=== PATIENT | female | born 1935 | race Caucasian/White ===

== ENCOUNTER 2020-07-31 06:50 | Outpatient (CLI) | payer MEDICARE, SELFPAY ==
[2020-07-31 07:33] LABS: Basophils Absolute Auto 0.1 K/mm3 (0.0-0.1); Basophils Percent Auto 0.6 % (0.2-1.2); Eosinophils Absolute Auto 0.2 K/mm3 (0-0.3); Eosinophils Percent Auto 1.9 % (0-4.4); Hematocrit 39.1 % (37.0-47.0); Hemoglobin 13.1 g/dL (12.0-15.0); Immature Granulocyte Absolute 0.03 K/mm3 (0.00-0.031); Immature Granulocyte Percent A 0.3 % (0-0.5); Lymphocytes Absolute Auto 3.72 K/mm3 (0.9-3.2); Lymphocytes Percent Auto 36.2 % (18.3-44.2); Mean Corpuscular HGB Conc 33.5 g/dl (32-36); Mean Corpuscular Volume 89.7 fl (80-100); Mean Platelet Volume 9.4 fl (7.4-10.4); Monocytes Absolute Auto 0.9 K/mm3 (0.1-0.6); Neutrophils Absolute Auto 5.3 K/mm3 (1.3-6.7); Platelet Count Result 359 k/mm3 (150-375); Red Blood Count 4.36 M/mm3 (4.2-5.4); Red Cell Distribution Width 13.6 % (11.5-14.5); White Blood Count 10.3 K/mm3 (4.5-10.0)
[2020-07-31 07:41] LABS: Alanine Aminotransferase 12 U/L (4-35); Albumin Level 3.9 g/dL (3.5-5.1); Alkaline Phosphatase 68 U/L (38-126); Anion Gap 3 mmol/L (8-16); Aspartate Amino Transferase 21 U/L (14-36); Bilirubin,Total 0.4 mg/dL (0.2-1.3); Blood Urea Nitrogen 10 mg/dL (7-17); Calcium 9.5 mg/dL (8.4-10.2); Carbon Dioxide 31 mmol/L (22-30); Chloride 102 mmol/L (98-107); Cholesterol 211 mg/dL (0-200); Estimated Glomerular Filt Rate > 60; Glucose 103 mg/dL (65-105); HDL Direct 45 mg/dL; Magnesium 2.2 mg/dL (1.6-2.3); Sodium 136 mmol/L (137-145); Triglycerides 148 mg/dL (<150)
[2020-07-31 07:54] LABS: LDL Cholesterol Direct 128 mg/dL
[2020-07-31 08:48] LABS: Folic Acid > 20.0 ng/mL (2.76->20)
== END 2020-07-31 06:51 | disposition home or self-care (01) ==
PROVIDERS: PCP Internal Medicine; Visit Provider Internal Medicine
DX: E78.5 Hyperlipidemia, unspecified (principal); I10 Essential (primary) hypertension; R53.83 Other fatigue
CPT/HCPCS: 36415; 80053; 80061; 82607; 82746; 83735; 84443; 85025

== ENCOUNTER 2021-07-29 07:01 | Outpatient (CLI) | payer MEDICARE, SELFPAY ==
[2021-07-29 07:32] LABS: Basophils Absolute Auto 0.1 K/mm3 (0.0-0.1); Basophils Percent Auto 0.5 % (0.2-1.2); Eosinophils Absolute Auto 0.2 K/mm3 (0-0.3); Hematocrit 39.5 % (37.0-47.0); Hemoglobin 12.8 g/dL (12.0-15.0); Immature Granulocyte Absolute 0.02 K/mm3 (0.00-0.031); Immature Granulocyte Percent A 0.2 % (0-0.5); Lymphocytes Absolute Auto 2.87 K/mm3 (0.9-3.2); Mean Corpuscular HGB Conc 32.4 g/dl (32-36); Mean Corpuscular Hemoglobin 29.8 pg (26-34); Mean Corpuscular Volume 91.9 fl (80-100); Mean Platelet Volume 9.5 fl (7.4-10.4); Monocytes Absolute Auto 0.9 K/mm3 (0.1-0.6); Monocytes Percent Auto 9.7 % (2.6-8.5); Neutrophils Absolute Auto 5.2 K/mm3 (1.3-6.7); Neutrophils Percent Auto 56.6 % (45.5-73.1); Platelet Count Result 285 k/mm3 (150-375); Red Cell Distribution Width 14.4 % (11.5-14.5); White Blood Count 9.3 K/mm3 (4.5-10.0)
[2021-07-29 08:38] LABS: Alanine Aminotransferase 14 U/L (4-35); Albumin Level 4.2 g/dL (3.5-5.1); Alkaline Phosphatase 65 U/L (38-126); Anion Gap 7 mmol/L (8-16); Aspartate Amino Transferase 28 U/L (14-36); Bilirubin,Total 0.5 mg/dL (0.2-1.3); Blood Urea Nitrogen 9 mg/dL (7-17); Calcium 9.6 mg/dL (8.4-10.2); Carbon Dioxide 30 mmol/L (22-30); Chloride 101 mmol/L (98-107); Cholesterol 159 mg/dL (0-200); Estimated Glomerular Filt Rate > 60; Glucose 102 mg/dL (65-110); HDL Direct 49 mg/dL; Sodium 138 mmol/L (137-145); Triglycerides 102 mg/dL (<150)
[2021-07-29 08:49] LABS: LDL Cholesterol Direct 78 mg/dL
[2021-07-29 09:08] LABS: Thyroid Stimulating Hormone 0.653 uIU/mL (0.465-4.680)
[2021-07-29 09:45] LABS: Folic Acid > 20.0 ng/mL (2.76->20)
== END 2021-07-29 07:02 | disposition home or self-care (01) ==
PROVIDERS: PCP Internal Medicine; Visit Provider Internal Medicine
DX: R53.83 Other fatigue (principal); R73.9 Hyperglycemia, unspecified; E78.5 Hyperlipidemia, unspecified
CPT/HCPCS: 36415; 80053; 80061; 82607; 82746; 84443; 85025

== ENCOUNTER 2021-11-12 12:23 | Outpatient (CLI) | payer MEDICARE, SELFPAY ==
--- NOTE | ~2021-11-12 | US_ITS ---
EXAMINATION: US carotid duplex BI DATE: 11/12/2021 13:19 INDICATION: Syncope and collapse TECHNIQUE: Grayscale, color Doppler, and pulsed Doppler images of the cervical carotid arteries were obtained. The degree of vessel stenosis is placed in one of the following categories: normal, <50%, 5 0-69%, >=70% but less than near-occlusion, near-occlusion, or total occlusion. Note that percent sten osis relative to normal distal artery lumen diameter is indirectly measured from velocity measurement s as described by Terrance, et al. Radiology 2003; 229:340-346. Notes: Normal: Peak systolic velocity <125 centimeters/sec and no plaque <50%. Peak systolic velocity <125 ( EDV <40; ICA/CCA PSV ratio <2.0; used these factors only a tandem lesions or low cardiac output or co ntralateral disease) 50-69 %: PSV 125-230 (EDV 40-100; ratio 2-4) >= 70% but less than near occlusion: PSV greater than 230 (EDV > 100; ratio> 4.0) Near Occlusion: PSV that is variable; markedly narrowed lumen Occlusion: Absent flow on color/spectral Doppler and no lumen on jorge scale. COMPARISON: None. FINDINGS: RIGHT: The right common carotid artery (CCA) peak systolic velocity (PSV) is 82 cm/s. The right internal car otid artery (ICA) PSV is 140 cm/s. The right ICA end-diastolic velocity (EDV) is 23 cm/s. The right I CA/CCA PSV ratio is 1.7. The external carotid artery (ECA) PSV is 138 cm/s. There is antegrade flow i n the right vertebral artery. LEFT: The left CCA PSV is 113 cm/s. The left ICA PSV is 76 cm/s. The left ICA EDV is 17 cm/s. The left ICA/ CCA PSV ratio is 0.7. The ECA PSV is 182 cm/s. There is antegrade flow in the left vertebral artery. IMPRESSION: 1. 50-69% stenosis in the right internal carotid artery by sonographic criteria. 2. Less than 50% stenosis in the left internal carotid artery by sonographic criteria. Reviewed, dictated and finalized at location B. [employer] IMPRESSION: 1. 50-69% stenosis in the right internal carotid artery by sonographic criteria . 2. Less than 50% stenosis in the left internal carotid artery by sonographic cr iteria.
== END 2021-11-12 12:24 | disposition home or self-care (01) ==
LOC: ANHIMG 12:29
PROVIDERS: PCP Internal Medicine; Visit Provider Physician Assistant
DX: I65.23 Occlusion and stenosis of bilateral carotid arteries (principal)
CPT/HCPCS: 93880

== ENCOUNTER 2022-07-20 08:22 | Outpatient (CLI) | payer MEDICARE, SELFPAY ==
[2022-07-20 08:38] LABS: Basophils Percent Auto 0.4 % (0.2-1.2); Eosinophils Absolute Auto 0.4 K/mm3 (0-0.3); Eosinophils Percent Auto 3.5 % (0-4.4); Hematocrit 41.5 % (37.0-47.0); Hemoglobin 13.3 g/dL (12.0-15.0); Immature Granulocyte Absolute 0.02 K/mm3 (0.00-0.031); Immature Granulocyte Percent A 0.2 % (0-0.5); Lymphocytes Absolute Auto 2.93 K/mm3 (0.9-3.2); Lymphocytes Percent Auto 28.7 % (18.3-44.2); Mean Corpuscular Volume 93.7 fl (80-100); Mean Platelet Volume 9.4 fl (7.4-10.4); Monocytes Absolute Auto 0.9 K/mm3 (0.1-0.6); Monocytes Percent Auto 8.8 % (2.6-8.5); Neutrophils Percent Auto 58.4 % (45.5-73.1); Platelet Count Result 283 k/mm3 (150-375); Red Blood Count 4.43 M/mm3 (4.2-5.4); Red Cell Distribution Width 13.4 % (11.5-14.5); White Blood Count 10.2 K/mm3 (4.5-10.0)
[2022-07-20 08:50] LABS: Alanine Aminotransferase 12 U/L (6-35); Albumin Level 4.1 g/dL (3.5-5.1); Alkaline Phosphatase 87 U/L (38-126); Anion Gap 9 mmol/L (8-16); Aspartate Amino Transferase 18 U/L (14-36); Bilirubin,Total 0.5 mg/dL (0.2-1.3); Blood Urea Nitrogen 7 mg/dL (7-17); Calcium 8.9 mg/dL (8.4-10.2); Carbon Dioxide 25 mmol/L (22-30); Chloride 103 mmol/L (98-107); Cholesterol 179 mg/dL (0-200); Estimated Glomerular Filt Rate > 60; Glucose 105 mg/dL (65-110); HDL Direct 49 mg/dL; Magnesium 2.1 mg/dL (1.6-2.3); Sodium 137 mmol/L (137-145); Triglycerides 154 mg/dL (<150)
[2022-07-20 09:01] LABS: LDL Cholesterol Direct 93 mg/dL
[2022-07-20 09:56] LABS: Folic Acid 7.7 ng/mL (2.76->20)
== END 2022-07-20 08:23 | disposition home or self-care (01) ==
LOC: ANHLAB 08:25
PROVIDERS: PCP Internal Medicine; Visit Provider Internal Medicine
DX: I48.0 Paroxysmal atrial fibrillation (principal); R53.83 Other fatigue; I25.10 Atherosclerotic heart disease of native coronary artery without angina pectoris; R73.9 Hyperglycemia, unspecified
CPT/HCPCS: 36415; 80053; 80061; 82607; 82746; 83735; 84443; 85025

== ENCOUNTER 2023-07-28 10:42 | Outpatient (CLI) | payer MEDICARE, SELFPAY ==
[2023-07-28 11:51] LABS: Basophils Percent Auto 0.4 % (0.2-1.2); Eosinophils Absolute Auto 0.2 K/mm3 (0-0.3); Eosinophils Percent Auto 2.1 % (0-4.4); Hematocrit 41.3 % (37.0-47.0); Hemoglobin 13.4 g/dL (12.0-15.0); Immature Granulocyte Absolute 0.03 K/mm3 (0.00-0.031); Immature Granulocyte Percent A 0.3 % (0-0.5); Lymphocytes Absolute Auto 2.84 K/mm3 (0.9-3.2); Lymphocytes Percent Auto 30.5 % (18.3-44.2); Mean Corpuscular HGB Conc 32.4 g/dl (32-36); Mean Corpuscular Hemoglobin 30.2 pg (26-34); Mean Corpuscular Volume 93.2 fl (80-100); Monocytes Absolute Auto 0.8 K/mm3 (0.1-0.6); Monocytes Percent Auto 8.3 % (2.6-8.5); Neutrophils Absolute Auto 5.4 K/mm3 (1.3-6.7); Neutrophils Percent Auto 58.4 % (45.5-73.1); Platelet Count Result 275 k/mm3 (150-375); Red Blood Count 4.43 M/mm3 (4.2-5.4); Red Cell Distribution Width 14.4 % (11.5-14.5); White Blood Count 9.3 K/mm3 (4.5-10.0)
[2023-07-28 12:04] LABS: Alanine Aminotransferase 17 U/L (6-35); Albumin Level 3.9 g/dL (3.5-5.1); Alkaline Phosphatase 62 U/L (38-126); Anion Gap 3 mmol/L (8-16); Aspartate Amino Transferase 24 U/L (14-36); Bilirubin,Total 0.5 mg/dL (0.2-1.3); Blood Urea Nitrogen 10 mg/dL (7-17); Calcium 8.9 mg/dL (8.4-10.2); Carbon Dioxide 31 mmol/L (22-30); Chloride 102 mmol/L (98-107); Cholesterol 170 mg/dL (0-200); Estimated Glomerular Filt Rate > 60; Glucose 96 mg/dL (65-110); HDL Direct 55 mg/dL; Sodium 136 mmol/L (137-145); Triglycerides 117 mg/dL (<150)
[2023-07-28 12:16] LABS: LDL Cholesterol Direct 81 mg/dL
[2023-07-28 12:36] LABS: Thyroid Stimulating Hormone 0.444 uIU/mL (0.465-4.680)
== END 2023-07-28 10:43 | disposition home or self-care (01) ==
PROVIDERS: PCP Internal Medicine; Visit Provider Internal Medicine
DX: E78.5 Hyperlipidemia, unspecified (principal); R53.83 Other fatigue; R73.9 Hyperglycemia, unspecified; I25.10 Atherosclerotic heart disease of native coronary artery without angina pectoris; I48.0 Paroxysmal atrial fibrillation
CPT/HCPCS: 36415; 80053; 80061; 83735; 84443; 85025

== ENCOUNTER 2023-08-27 10:42 | Outpatient (CLI) | payer MEDICARE, SELFPAY | END 2023-08-27 10:43 | disposition home or self-care (01) | PROVIDERS: PCP Internal Medicine; Visit Provider Physician Assistant | DX: R41.0 Disorientation, unspecified (principal); R29.6 Repeated falls | CPT/HCPCS: 87086; 87088 ==

== ENCOUNTER 2024-08-03 10:21 | Outpatient (CLI) | payer MEDICARE, SELFPAY ==
[2024-08-03 11:04] LABS: Basophils Percent Auto 0.5 % (0.2-1.2); Eosinophils Absolute Auto 0.2 K/mm3 (0-0.3); Eosinophils Percent Auto 2.7 % (0-4.4); Hematocrit 42.8 % (37.0-47.0); Hemoglobin 13.6 g/dL (12.0-15.0); Immature Granulocyte Absolute 0.02 K/mm3 (0.00-0.031); Immature Granulocyte Percent A 0.2 % (0-0.5); Lymphocytes Absolute Auto 2.58 K/mm3 (0.9-3.2); Lymphocytes Percent Auto 29.9 % (18.3-44.2); Mean Corpuscular HGB Conc 31.8 g/dl (32-36); Mean Corpuscular Hemoglobin 30.1 pg (26-34); Mean Corpuscular Volume 94.7 fl (80-100); Mean Platelet Volume 10.2 fl (7.4-10.4); Monocytes Absolute Auto 0.7 K/mm3 (0.1-0.6); Monocytes Percent Auto 7.6 % (2.6-8.5); Neutrophils Absolute Auto 5.1 K/mm3 (1.3-6.7); Neutrophils Percent Auto 59.1 % (45.5-73.1); Platelet Count Result 281 k/mm3 (150-375); Red Blood Count 4.52 M/mm3 (4.2-5.4); Red Cell Distribution Width 13.9 % (11.5-14.5); White Blood Count 8.6 K/mm3 (4.5-10.0)
[2024-08-03 11:16] LABS: Alanine Aminotransferase 12 U/L (6-35); Albumin Level 3.9 g/dL (3.5-5.1); Alkaline Phosphatase 56 U/L (38-126); Anion Gap 5 mmol/L (4-12); Aspartate Amino Transferase 23 U/L (14-36); Bilirubin,Total 0.5 mg/dL (0.2-1.3); Blood Urea Nitrogen 15 mg/dL (7-17); Calcium 9.2 mg/dL (8.4-10.2); Carbon Dioxide 28 mmol/L (22-30); Chloride 105 mmol/L (98-107); Cholesterol 169 mg/dL (0-200); Estimated Glomerular Filt Rate > 60; Glucose 96 mg/dL (65-110); HDL Direct 48 mg/dL; Potassium 3.9 mmol/L (3.4-5.0); Sodium 138 mmol/L (137-145); Triglycerides 117 mg/dL (<150)
[2024-08-03 11:27] LABS: LDL Cholesterol Direct 78 mg/dL
[2024-08-03 11:49] LABS: Thyroid Stimulating Hormone 0.375 uIU/mL (0.465-4.680)
[2024-08-03 12:26] LABS: Folic Acid > 20.0 ng/mL (2.76->20)
== END 2024-08-03 10:22 | disposition home or self-care (01) ==
PROVIDERS: PCP Internal Medicine; Visit Provider Physician Assistant
DX: R53.83 Other fatigue (principal); I25.10 Atherosclerotic heart disease of native coronary artery without angina pectoris
CPT/HCPCS: 36415; 80053; 80061; 82607; 82746; 84443; 85025

== ENCOUNTER 2024-10-05 15:28 | Outpatient (CLI) | payer MEDICARE, SELFPAY ==
[2024-10-05 15:56] LABS: Anion Gap 2 mmol/L (4-12); Blood Urea Nitrogen 15 mg/dL (7-17); Calcium 9.6 mg/dL (8.4-10.2); Carbon Dioxide 28 mmol/L (22-30); Chloride 107 mmol/L (98-107); Estimated Glomerular Filt Rate > 60; Glucose 95 mg/dL (65-110); Potassium 4.1 mmol/L (3.4-5.0); Sodium 137 mmol/L (137-145)
== END 2024-10-05 15:29 | disposition home or self-care (01) ==
LOC: ANHLAB 15:29
PROVIDERS: PCP Nurse Practitioner; Visit Provider Nurse Practitioner
DX: I10 Essential (primary) hypertension (principal)
CPT/HCPCS: 36415; 80048

== ENCOUNTER 2025-04-16 11:10 | Outpatient (CLI) | payer MEDICARE, SELFPAY ==
--- OUTSIDE RECORDS SUMMARY | 2025-04-16 11:42 | XMS_ITS | Clinical Summary ---
Author Organization [facility] Address [address] [place] [address] Care Team Providers Care Asic Engineer Name Role Phone Unavailable Primary Care Provider Unavailabl e Source Comments [facility],non-owned Affiliates and Associated Physician Practices is amultiple site organization consisting of ambulatory clinics and [place]in [place] and [place]. This disclosure is being madepursuant to the Care Everywhere program and may not contain all information available regarding this patient. Last updated 18.[facility] Hyperoptic Allergies No known active allergies Immunizations Immunization Administration Dates Next Due INFLUENZA VACCINE, HIGH-DOSE , QUADR. 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 Gender Identity Not on file Sexual Orientation Not on file Plan of Treatment Health Maintenance Due Date Last Done Comments BONE DENSITY TESTING 1937 DTAP/TDAP/TD VACCINES (1 - Tdap) 1956 PNEUMOCOCCAL VACCINE 50+ (1 of 1 - PCV) 1987 ZOSTER VACCINE (1 of 2) 1987 Respiratory Syncytial Virus (RSV) Vaccine Pt: or over 60 yrs (1 - 1-dose 75+ series) 2012 COVID-19 VACCINE ( - 2023-2 5 season) 2024 DEPRESSION SCREENING 10/18/2024 INFLUENZA VACCINE (Season Ended) 2025 09/24/20 17 HEPATITIS B VACCINE Aged Out No longe r eligible based on patient's age to complete this topic HIB VACCINE Aged Out No longer eligi ble based on patient's age to complete this topic HPV VACCINE Aged Out No longer eligi ble based on patient's age to complete this topic MENINGOCOCCAL (Group B) VACC INE SHARED DECISION-MAKING Aged Out No longer eligibl e based on patient's age to complete this topic MENINGOCOCCAL GROUPS A/C/Y/W VACCINE Aged Out No longer eligible b ased on patient's age to complete this topic Insurance MEDICARE [facility] Address: [address] [place] [address] MEDICARE
--- OUTSIDE RECORDS SUMMARY | 2025-04-16 11:43 | XMS_ITS | Clinical Summary ---
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 Phone Jeramy Orourke MD Unavailable [phone] Jefferson Kong NP Primary Care Provider [phone] Allergies No known active allergies Medications aspirin (ASPIRIN LOW DOSE) 81 mg tablet take 1 Tablet (81MG) by oral route every day 0 3 Active multivitamin tablet tablet take 1 tablet by oral route every day with food 0 3 Active calcium (CALCIO ALVIN) 500 mg tablet take 1 by oral route every day 0 3 Active lisinopriL (PRINIVIL,ZESTRIL ) 40 mg tabletIndications :Essential hypertension Take 1 tablet (40 mg total) by mouth daily 1 Active carvediloL (COREG) 6.25 mg tabletIndications :New onset atrial fibrillation (HCC) Take 1 tablet (6.25 mg total) by mouth 2 (two) times a day with meals 60 tablet 1 01/12/20 26 Active atorvastatin (LIPITOR) 20 mg tablet Take 1 tablet (20 mg total) by mouth daily Active cholecalciferol (VITAMIN D-3) 25 mcg (1,000 unit) tablet Take 1 tablet (1,000 Units total) by mouth daily Active DULCOLAX, BISACODYL, ORAL Take by mouth Active polyethylene glycol (MIRALAX) 17 gram packetIndications :constipation Take 1 packet (17 g total) by mouth daily Active nitroglycerin (NITROSTAT) 0.4 mg SL tablet DISSOLVE ONE TABLET UNDER THE TONGUE EVERY 5 MINUTES NEEDED FOR CHEST PAIN. DO NOT EXCEED A TOTAL OF 3 DOSES IN 15 MINUTES 25 tablet 4 Active isosorbide mononitrate ER (IMDUR) 30 mg 24 hr tabletIndications :Coronary artery disease of [place] heart with stable angina pectoris, unspecified vessel or lesion type Take 1 tablet by mouth once daily 90 tablet 2 4 Active amLODIPine (NORVASC) 10 mg tablet Take 1 tablet (10 mg total) by mouth daily 5 Active Active Problems Problem Noted Date Diagnosed Date Syncope, unspecified syncope type 01/28/2025 Cardiac pacemaker in situ 02/12/2021 Overview (02/12/2021): Biotronik Dual Pacemaker-Edora. Dx; SSS, Bradycardia Arrest, Syncope, PAF. DOI 02/04/2021-Dr Carrero. Biotronik remote monitoring. Paroxysmal A-fib 02/03/2021 Overview (02/03/2021): Added automatically from request for surgery [id number] CAD (coronary artery disease) 02/03/2021 Overview (02/03/2021): Added automatically from request for surgery [id number] Paroxysmal atrial fibrillation 10/16/2019 Coronary artery disease invo lving [place] coronary artery of [place] heart without angina pectoris 02/17/2018 Orthostatic hypotension 02/17/2018 History of coronary artery stent placement 02/17 Bradycardia Essential hypertension Anemia, mild Resolved Problems Problem Noted Date Diagnosed Date Resolved Date Chronic anticoagulation 10/16/201910/18 Encounters Date Type Department Care Team Description 01/30/2025 8:30 AM CDT Ancillary Procedure [facility] Cardiology [facility] [address] [place] [id number] Paroxysmal A-fib (HCC) [I48.0] (Primary Dx); Cardiac pacemaker in situ; Bradycardia; SSS (sick sinus syndrome) (HCC) 01/28/2025 11:23 AM CDT - 01/28/2025 4:14 PM CDT Emergency [facility] Emergency Department [address] [place] [address] Alejandra Rodriguez MD PhD Mateus Lebron MD Syncope, unspecified syncope type (Primary Dx); Bradycardia Discharge Disposition: Discharge to home or self care from Last 3 Months Medical History Medical History Date Comments Hypertension Family History Medical History Relation Name Comments Heart failure Mother 2 Congestive Hea rt Failure; Relation Name Status Comments Mother 1 Alive Mother 2 Social History Tobacco Use Types Packs/Day Years Used Date Smoking Tobacco: Former Smokeless Tobacco: Never Tobacco Cessation:Counseling Given: Not Answered Alcohol Use Standard Drinks/Week Comments Yes 0 (1 standard drink = 0.6 oz pur e alcohol) Personal Safety Answer Date Recorded Have you ever been in or are you currently in a harmful physical or emotional relationship or is someone making you feel afraid or unsafe? 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 Gender Identity Not on file Sexual Orientation Not on file Obstetrics History Last Filed Vital Signs Vital Sign Reading Time Taken Comments Blood Pressure 160/63 01/28/2025 3:05 PM CDT Pulse 77 01/28/2025 3:05 PM CDT Temperature 36.4 C (97.6 F) 01/28/2025 11:34 AM CDT Respiratory Rate 18 01/28/2025 3:05 PM CDT Oxygen Saturation 96% 01/28/2025 3:05 PM CDT Inhaled Oxygen Concentration - - Weight 52.2 kg (115 lb) 01/28/2025 11:49 AM CDT Height 160 cm (5' 3) 01/28/2025 11:49 AM CDT Body Mass Index 20.37 01/28/2025 11:49 AM CDT Plan of Treatment Health Maintenance Due Date Last Done Comments Depression Screening 1935 Osteoporosis Screening-Bone Density Scan 1935 DTaP/Tdap/Td Vaccine (1 - Tdap) 1948 Hepatitis B Screening 1955 Zoster Vaccine (1 of 2) 1987 Well Visit 65+ 2002 Pneumococcal vaccine 65+ (2 of 2 - PCV) 08/21/2020 08/21/2019 Fall Risk Assessment 02/05/2022 02/05/2021, 02/18/20 Influenza Vaccine (Season Ended) 2025 08/21/2019, 08/05/2018, 09/24/2017 Medical Devices Implanted Type Area Welder 2Nd Shift Device Identifier Shelf Expiration Date Model / Serial / Lot Bi[employer]ik Inc [id number] Solia S 53cm Steroid Elute Bipolar Active Fixation Endocardial - [id number] - [id number] Implanted:Qty: 1 on 02/04/2021 by Harrison Carrero MD at [facility] N/A: Heart [employer] 11/17/2022 [id number] / [id number] / Description:Right Ventricle Lead [employer] [id number] Solia S 45cm Bipolar Active Fixation Lead Pacing Steroid Eluting - [id number] - [id number] Implanted:Qty: 1 on 02/04/2021 by Harrison Carrero MD at [facility] N/A: Heart [employer] 12/15/2022 [id number] / [id number] / Description:Atrial Lead [employer] [id number] Edora Promri [id number] Dual Chamber Rate Adaptive Unipolar Bipolar - [id number] - [id number] Implanted:Qty: 1 on 02/04/2021 by Harrison Carrero MD at [facility] Left: Chest [employer] 05/17/2022 [id number] / [id number] / Procedures Procedure Name Priority Date/Time Associated Diagnosis Comments DEVICE CHECK - REMOTE Routine 01/30/2025 9:17 AM CDT Cardiac pacemaker in situ Bradycardia SSS (sick sinus syndrome) (HCC) URINALYSIS AND REFLEX TO MICROSCOPIC AND CULTURE STAT 01/28/2025 1:24 PM CDT TROPONIN I HIGH-SENSITIVITY 2-HOUR Timed 01/28/2025 1:18 PM CDT POCT GLUCOSE DEVICE Routine 01/28/2025 1 2:36 PM CDT ECG 12-LEAD Routine 01/28/2025 12:26 PM CDT XR CHEST PA LATERAL 2 VIEWS ED 01/28/2025 12:10 PM CDT EGFR STAT 01/28/2025 11:43 AM CDT DIFFERENTIAL AUTO STAT 01/28/2025 11: 43 AM CDT PHOSPHORUS Routine 01/28/2025 11:43 AM CDT MAGNESIUM Routine 01/28/2025 11:43 AM CDT THYROID FUNCTION CASCADE Routine 01/28/2025 11:43 AM CDT PRO B-TYPE NATRIURETIC PEPTIDE STAT 01/28/2025 11:43 AM CDT TROPONIN I HIGH-SENSITIVITY SERIES (BASELINE, 2HR, 4HR, 6HR) STAT 01/28/2025 11:43 AM CDT COMPREHENSIVE METABOLIC PANEL STAT 01/28/2025 11:43 AM CDT CBC WITH AUTO DIFFERENTIAL STAT 01/28/2025 11:43 AM CDT RESPIRATORY PATHOGEN PANEL STAT 01/28/2025 11:43 AM CDT from Last 3 Months Results * DEVICE CHECK - REMOTE (01/30/2025 9:17 AM CDT) Anatomical Region Laterality Modality Other Narrative 02/08/2025 7:21 AM CDT Biotronik Dual Pacemaker-Edora. Dx; SSS, Bradycardia Arrest, Syncope, PAF. DOI 02/04/2021-Dr Carrero. Biotronik remote monitoring. Routine DDD Pacemaker remote. Normal device function. Battery function-65%, remaining battery life to YURY. Appropriate lead measurements noted. Presenting rhythm: -VS. Ap-58%, SOCIAL SERVICES COUNSELOR-0%. No Atrial high rate episodes noted. 1 Ventricular high rate episode noted on 11/26/2024, iegm NSVT 21 beat duration @ 185 bpm. See device check attachment. Medications; Coreg, Imdur, Lipitor, ASA. See scanned report. Office pacemaker f/u 06/06/2025. Biotronik remote f/u du in 6 months. Yumiko Roche, RN us Jeramy Orourke MD CV CARDIAC SERVICES PROC EDURES Final Result * (ABNORMAL) Urinalysis reflex to microscopic and culture Urine, clean voided (01/28/2025 1:24 PM CDT) Color, ur Straw Yellow Clarity, ur Cloudy(A) Clear [facility] Specific gravity, ur 1.009 1.003 - 1.030 [facility] pH, urine 7.5 [facility] Comment: Interpretive Data U rine pH is affected by diet, medications, systemic acid-base disturbances, and renal tubular function. pH may affect urinary stone formation. For example, urine pH below 6.0 may help reduce the tendency for calcium phosphate stones and pH greater than 6.0 may reduce the tendency for uric acid stone formation. Source: [facility] friendfund Current Interpretive Data was last revised on 2017 Protein, ur ql Trace Negative [facility] Glucose, ur ql Negative Negative [facility] Ketones, ur Negative Negative [facility] Bilirubin, ur Negative Negative [facility] Blood, ur Negative Negative [facility] Urobilinogen, ur <2.0 <2.0 mg/dL [facility] Nitrite, ur Negative Negative [facility] Leukocyte esterase, ur Negative Negative [facility] UA reflex comment Reflex conditions for microscopic UA and culture not met. [facility] Urine, clean voided 01/28/2025 1:24 PM CDT 01/28/2025 1:30 PM CDT us Hoa Vizcaino MD LAB MICROBIOLOGY - GENE RAL ORDERABLES Final Result [facility] One [facility] Department [place] [address] * Troponin I high-sensitivity 2-hour (01/28/2025 1:18 PM CDT) Trop I hs 5 <=17 ng/L Comment: Interpretive Data For further hscTnI resources including the diagnostic algorithm and an aid in interpretation, copy and paste this link: https://bjhlab.testcatalog.org/show/hsTrop-[email or web address] Current Interpretive Data last revised 2020. Trop I hs delta 0 ng/L [facility] Trop I hs interp Insignificant [facility] Blood 01/28/2025 1:18 PM CDT 01/28/2025 1:40 PM CDT us Hoa Vizcaino MD LAB BLOOD ORDERABLES Fi nal Result Performing Organization Address City/[facility]/ZIP Co de Phone Number [facility] Department [place] [address] * POCT glucose (01/28/2025 12:36 PM CDT) [facility] Glucose, POC 103 70 - 199 mg/dL Blood 01/28/2025 12:3 6 PM CDT 01/28/2025 12:36 PM CDT us Alejandra Rodriguez MD PhD LAB POCT ORDERABLES - D EVICE Final Result Performing Organization Address City/[facility] Co de Phone Number [facility] Department [place] [address] * ECG 12-LEAD (01/28/2025 12:26 PM CDT) Narrative [facility] - 01/28/2025 12:26 PM CDT Alejandra Rodriguez MD PhD 01/28/2025 12:27 PM ECG 12 lead Date/Time: 01/28/2025 12:26 PM Performed by: Alejandra Rodriguez MD PhD Authorized by: Hoa Vizcaino MD Rate: ECG rate: 72 ECG rate assessment: normal Rhythm: Rhythm: paced Pacing: Capture: Complete Type of pacing: Atrial Ectopy: Ectopy: none QRS: QRS axis: Normal QRS intervals: Normal Conduction: Conduction: normal ST segments: ST segments: Normal T waves: T waves: non-specific Previous ECG: Previous ECG: Compared to current Date of previous EC11/05/2023 Interpretation: Interpretation: No significant change Recommended Follow-up: Recommended follow up: further workup in the ED Procedure Note Alejandra Rodriguez MD PhD - 01/28/2025 12:26 PM CDT Procedure ECG 12 lead Date/Time: 01/28/2025 12:26 PM Performed by: Alejandra Rodriguez MD PhD Authorized by: Hoa Vizcaino MD Rate: ECG rate: 72 ECG rate assessment: normal Rhythm: Rhythm: paced Pacing: Capture: Complete Type of pacing: Atrial Ectopy: Ectopy: none QRS: QRS axis: Normal QRS intervals: Normal Conduction: Conduction: normal ST segments: ST segments: Normal T waves: T waves: non-specific Previous ECG: Previous ECG: Compared to current Date of previous EC11/05/2023 Interpretation: Interpretation: No significant change Recommended Follow-up: Recommended follow up: further workup in the ED Alejandra Rodriguez MD PhD 01/28/25 [id number] us Hoa Vizcaino MD ECG ORDERABLES Final R esult [facility] * XR Chest PA Lateral 2 Views (01/28/2025 12:10 PM CDT) Anatomical Region Laterality Modality Body, Chest N/A Computed Radiogr aphy 01/28/2025 12:1 6 PM CDT Impressions 01/28/2025 2:16 PM CDT The current study is compared with the prior radiograph dated 02/04/2021. Left subclavian pacemaker with leads overlying the right atrium and right ventricle. The lungs are mildly hyperinflated. No consolidation, pleural effusion, or pneumothorax. Normal cardiomediastinal silhouette. Dictated by: Jose Clemens MD The radiology attending physician has personally reviewed this study, and had reviewed and/or edited this written report and agrees with it. Electronically signed by: Atif Hernández M.D. Narrative 01/28/2025 2:16 PM CDT EXAMINATION: 2 view chest radiograph Procedure Note Atif Hernández MD - 01/28/2025 EXAMINATION: 2 view chest radiograph IMPRESSION: The current study is compared with the prior radiograph dated 02/04/2021. Left subclavian pacemaker with leads overlying the right atrium and right ventricle. The lungs are mildly hyperinflated. No consolidation, pleural effusion, or pneumothorax. Normal cardiomediastinal silhouette. Dictated by: Jose Clemens MD The radiology attending physician has personally reviewed this study, and had reviewed and/or edited this written report and agrees with it. Electronically signed by: Atif Hernández M.D. Hoa Vizcaino MD IMG XR PROCEDURES Final Result * Troponin I high-sensitivity series (baseline, 2hr, 4hr, 6hr) (01/28/2025 11:43 AM CDT) Pathologist [facility] Trop I hs 5 <=17 ng/L Comment: Interpretive Data For further hscTnI resources including the diagnostic algorithm and an aid in interpretation, copy and paste this link: https://bjhlab.testcatalog.org/show/hsTrop-[email or web address] Current Interpretive Data last revised 2020. Blood 01/28/2025 11:4 3 AM CDT 01/28/2025 12:06 PM CDT Hoa Vizcaino MD LAB BLOOD ORDERABLES Fi nal Result [facility] One [facility] Department [place] [address] * eGFR (01/28/2025 11:43 AM CDT) Pathologist [facility] eGFR 84 >=60 mL/min/1. 73 m2 Comment: Interpretive Data Reference Interval Normal >/= 90 mL/min/1.73m2 Mildly decreased* 60 - 89 mL/min/1.73m2 Mildly to moderately decreased 45 - 59 mL/min/1.73m2 Moderately to severely decreased 30 - 44 mL/min/1.73m2 Severely decreased 15 - 29 mL/min/1.73m2 Kidney Failure < 15 mL/min/1.73m2 *Relative to young adult level Estimated glomerular filtration rate is determined by the 2020 CKD-EPI equation recommended by the National Kidney Foundation (A Unifying Approach to GFR Estimation: Recommendations of the NKF-ASK Task Force on Reassessing the Inclusion of Race in Diagnosing Kidney Disease, JASN 2020). The CKD-EPI equation should not be used for patients with unstable renal function and has not been validated in children and those over 70. Current interpretive data was last reviewed 2021. Blood 01/28/2025 11:4 3 AM CDT 01/28/2025 12:06 PM CDT Hoa Vizcaino MD LAB BLOOD ORDERABLES nal Result [facility] Department [place] [address] * (ABNORMAL) Differential, auto (01/28/2025 11:43 AM CDT) Neutrophil abs 5.80 1.50 - 6.50 K/cumm Imm gran abs 0.05 0.00 - 0.10 K/cumm [facility] Lymphocyte abs 2.33 0.80 - 3.30 K/cumm [facility] Monocyte abs 0.89(H) 0.20 - 0.80 K/cumm [facility] Eosinophil abs 0.33 0.00 - 0.50 K/cumm [facility] Basophil abs 0.04 0.00 - 0.10 K/cumm [facility] Neutrophil pct 61.5 % [facility] Comment: Interpretive Data Percent cell count reference ranges are not reported, since discordance with absolute values may lead to misinterpretation of CBC data. Current Interpretive Data was last revised on 2018. Imm gran pct 0.5 % [facility] Comment: Interpretive Data Percent cell count reference ranges are not reported, since discordance with absolute values may lead to misinterpretation of CBC data. Current Interpretive Data was last revised on 2018. Lymphocyte pct 24.7 % [facility] Comment: Interpretive Data Percent cell count reference ranges are not reported, since discordance with absolute values may lead to misinterpretation of CBC data. Current Interpretive Data was last revised on 2018. Monocyte pct 9.4 % [facility] Comment: Interpretive Data Percent cell count reference ranges are not reported, since discordance with absolute values may lead to misinterpretation of CBC data. Current Interpretive Data was last revised on 2018. Eosinophil pct 3.5 % [facility] Comment: Interpretive Data Percent cell count reference ranges are not reported, since discordance with absolute values may lead to misinterpretation of CBC data. Current Interpretive Data was last revised on 2018. Basophil pct 0.4 % [facility] Comment: Interpretive Data Percent cell count reference ranges are not reported, since discordance with absolute values may lead to misinterpretation of CBC data. Current Interpretive Data was last revised on 2018. Blood 01/28/2025 11:4 3 AM CDT 01/28/2025 12:06 PM CDT Hoa Vizcaino MD LAB BLOOD ORDERABLES nal Result [facility] One [facility] Department [place] [address] * (ABNORMAL) Pro B-type natriuretic peptide (01/28/2025 11:43 AM CDT) NT-proBNP 488(H) <=450 pg/mL Comment: Interpretive Comments: A. Dyspnea in Acute Care Setting All Ages: < 300 pg/ml, acute heart failure unlikely. < 50 yrs: 300 - 450 pg/ml, further investigation warranted. > 450 pg/ml, acute heart failure likely. 50 - 74 yrs: 300 - 900 pg/ml, further investigation warranted. > 900 pg/ml, acute heart failure likely . > or = 75 yrs: 450 - 1800 pg/ml, further investigation warranted. > 1800 pg/ml, acute heart failure likely. B. Non-acute Setting < 75 yrs < 125 pg/ml, rules out heart failure. > or = 125 pg/ml, further investigation warranted. > or = 75 yrs < 450 pg/ml, rules out heart failure. > or = 450 pg/ml, further investigation warranted. - Knowledge of each individual patient's NT-proBNP range may be more useful than using similar cut-points for every patient. Please note that marked elevations in NT-proBNP levels may be observed in state other than Left Ventricular Congestive Failure, including: acute coronary syndromes, right heart strain/failure (including pulmonary embolism and cor pulmonale), critical illness, renal failure, as well as advanced age. - References: 1. Jessika CASTILLO et.al. Eur Heart J. 2006:27:330-337. 2. Gato ALBA, Sharon ZAMUDIO. J. AM Wei Cardiol: Cardiovasc Imag. 2009;2: 216- 225. Interpretive Data Last Revised Date: 2018. Blood 01/28/2025 11:4 3 AM CDT 01/28/2025 12:06 PM CDT Hoa Viczaino MD LAB BLOOD ORDERABLES Fi nal Result Performing Organization Address City/[facility]/ZIP Co de Phone Number [facility] [place] [address] * Thyroid Function [place] (01/28/2025 11:43 AM CDT) TSH 1.21 0.30 - 4.20 mcIUnit/mL Blood 01/28/2025 11:4 3 AM CDT 01/28/2025 12:06 PM CDT Hoa Vizcaino MD LAB BLOOD ORDERABLES Fi nal Result Performing Organization Address City/[facility] Co de Phone Number [facility] Department [place] [address] * Respiratory pathogen panel Nasopharyngeal (01/28/2025 11:43 AM CDT) Pathologist [facility] Influenza A RNA Not Detected Not Detected Influenza B RNA Not Detected Not Detected [facility] RSV RNA Not Detected Not Detected [facility] COVID-19 RNA Not Detected Not Detected [facility] Coronavirus 229E RNA Not Detected Not Detected [facility] Coronavirus HKU1 RNA Not Detected Not Detected [facility] Coronavirus NL63 RNA Not Detected Not Detected [facility] Coronavirus OC43 RNA Not Detected Not Detected [facility] Adenovirus DNA Not Detected Not Detected [facility] Metapneumovirus RNA Not Detected Not Detected [facility] Rhinovirus/Enterov irus RNA Not Detected Not Detected [facility] Parainfluenza 1 RNA Not Detected Not Detected [facility] Parainfluenza 2 RNA Not Detected Not Detected [facility] Parainfluenza 3 RNA Not Detected Not Detected [facility] Parainfluenza 4 RNA Not Detected Not Detected [facility] B. pertussis DNA Not Detected Not Detected [facility] B. parapertussis DNA Not Detected Not Detected [facility] C. pneumoniae DNA Not Detected Not Detected [facility] M. pneumoniae DNA Not Detected Not Detected [facility] Nasopharyngeal 01/28/2025 11 :43 AM CDT 01/28/2025 11:58 AM CDT Narrative [facility] - 01/28/2025 12:51 PM CDT Is the Patient experiencing symptoms consistent with COVID?->Yes Surveillance testing for transplant patient?->No Interpretive Data The [employer] FilmArray Respiratory Panel (RP2.1) assay is a multiplexed real-time PCR based nucleic acid test capable of simultaneous qualitative detection and identification of multiple respiratory viral and bacterial nucleic acids, including SARS Coronavirus 2 (the causative agent of COVID-19). The following bacteria, viruses and virus subtypes can be identified using the FilmArray RP2.1 assay: Bordetella pertussis, Bordetella parapertussis, Chlamydia pneumoniae, Mycoplasma pneumoniae, Adenovirus, SARS Coronavirus 2, seasonal coronaviruses (Coronavirus HKU1, Coronavirus NL63, Coronavirus 229E, and Coronavirus OC43), Influenza A, Influenza A subtype H1, Influenza A subtype H3, Influenza A subtype 2009 H1, Influenza B, Metapneumovirus, Parainfluenza 1, Parainfluenza 2, Parainfluenza 3, Parainfluenza 4, RSV, Rhinovirus/Enterovirus. Due to the genetic similarity between human Rhinovirus and Enterovirus, the FilmArray RP2.1 assay cannot reliably differentiate them. Coronavirus OC43 may cross-react with some isolates of Coronavirus HKU1. A dual positive result may be due to cross-reactivity or may indicate a co- infection. The detection and identification of specific viral and bacterial nucleic acids from individuals exhibiting signs and symptoms of a respiratory infection aids in the diagnosis of respiratory infection if used in conjunction with other clinical and epidemiological information. The results of this test should not be used as the sole basis for diagnosis, treatment, or other management decisions. Negative results in the setting of a respiratory illness may be due to infection with pathogens that are not detected by this test. Positive results do not rule out infection/co-infection with other organisms. The agent(s) detected by the FilmArray RP2.1 may not be the definite cause of disease. Additional testing (lab, imaging, etc.) may be necessary when evaluating a patient with possible respiratory tract infection. The FilmArray RP2.1 assay has FDA clearance for testing of PAYLOADER OPERATOR swabs. The performance of additional specimen types has been assessed by the performing laboratory. The performance characteristics of this assay have been determined by [facility] Molecular Infectious Disease Laboratory. Current interpretive data was last revised on 22. Hoa Vizcaino MD LAB MICROBIOLOGY - [facility] ORDERABLES Final Result [facility] Department [place] [address] * (ABNORMAL) CBC with auto differential (01/28/2025 11:43 AM CDT) [facility] WBC 9.44 3.80 - 9.90 K/cumm Hgb 11.2(L) 11.9 - 15.5 g/dL [facility] Hct 34.4(L) 35.6 - 45.5 % [facility] Plt 260 150 - 400 K/cumm [facility] MPV 9.7 9.1 - 12.3 fL [facility] RBC 3.75(L) 3.90 - 5.20 M/cumm [facility] MCV 91.7 81.3 - 96.4 fL [facility] MCH 29.9 27.1 - 33.3 pg [facility] MCHC 32.6 32.3 - 35.7 g/dL [facility] RDW CV 13.9 11.1 - 14.9 % [facility] RDW SD 47.1 35.7 - 48.1 fL [facility] NRBC abs 0.00 0.00 - 0.01 K/cumm [facility] Blood 01/28/2025 11:4 3 AM CDT 01/28/2025 12:06 PM CDT Hoa Vizcaino MD LAB BLOOD ORDERABLES Fi nal Result Performing Organization Address City/[facility] Co de Phone Number [facility] Department [place] [address] * Phosphorus (01/28/2025 11:43 AM CDT) Phosphorus, pl 3.0 2.3 - 4.5 mg/dL Blood 01/28/2025 11:4 3 AM CDT 01/28/2025 12:06 PM CDT Hoa Vizcaino MD LAB BLOOD ORDERABLES Fi nal Result Performing Organization Address City/[facility] Co de Phone Number [facility] Department [place] [address] * Magnesium (01/28/2025 11:43 AM CDT) Magnesium 2.0 1.4 - 2.5 mg/dL Blood 01/28/2025 11:4 3 AM CDT 01/28/2025 12:06 PM CDT Hoa Vizcaino MD LAB BLOOD ORDERABLES Fi nal Result Performing Organization Address City/[facility] Co de Phone Number [facility] Department [place] [address] * (ABNORMAL) Comprehensive metabolic panel (01/28/2025 11:43 AM CDT) Sodium 143 135 - 145 mmol/L Potassium, pl 3.9 3.3 - 4.9 mmol/L [facility] Chloride 107 97 - 110 mmol/L [facility] CO2 27 22 - 32 mmol/L [facility] Anion gap 9 2 - 15 mmol/L [facility] BUN 12 6 - 25 mg/dL [facility] Creatinine 0.69 0.60 - 1.10 mg/dL [facility] Glucose 94 70 - 199 mg/dL [facility] Comment: Interpretive Data Fasting glucose >/= 126 mg/dl is diagnostic for diabetes. Fasting is defined as no caloric intake for at least 8 hours. Fasting glucose between 100 mg/dl to 125 mg/dl is diagnostic of prediabetes. In a patient with classic symptoms of hyperglycemia or hyperglycemic crisis, a random glucose >/= 200 mg/dl is diagnostic for diabetes. In the absence of unequivocal hyperglycemia, results should be confirmed by repeat testing. The classification and Diagnosis of Diabetes Diabetes Care 2021; 46: S19-S40. Current interpretive data was last revised 2022. Calcium 8.7 8.5 - 10.3 mg/dL [facility] Bilirubin, total 0.3 0.1 - 1.2 mg/dL [facility] Protein, pl 6.4(L) 6.5 - 8.5 g/dL [facility] Albumin 3.5 3.5 - 5.0 g/dL [facility] Alk phos 93 40 - 130 Units/L [facility] ALT 12 7 - 45 Units/L [facility] AST 17 10 - 45 Units/L [facility] Blood 01/28/2025 11:4 3 AM CDT 01/28/2025 12:06 PM CDT us Hoa Vizcaino MD LAB BLOOD ORDERABLES Fi nal Result [facility] Department [place] [address] from Last 3 Months Insurance MEDICARE [facility] MEDICARE [facility] MEDICARE [facility] Address: [address] [address] [facility] AARP Advance Directives For more information, please contact: [phone] * Full Code (Latest Code Status on File) Date Activated Date Inactivated Comments 02/01/2021 4:19 PM 02/05/2021 10:16 PM Care Teams Painting Trades Worker Relationship Specialty Start Date End Date Jefferson Kong NP [address] [place] [address] PCP - General Nurse Practitioner 01/11/25 Jeramy Orourke MD [address] [place] [address] Consulting Physician Cardiology 02/05/21
--- OUTSIDE RECORDS SUMMARY | 2025-04-16 11:43 | XMS_ITS | Continuity of Care Document ---
Author Organization [facility] Address [address] [place] [address] Phone Care Team Providers Care Pitch Worker Name Role Phone Femi Cruz Unavailable Unavailable Procedures Procedure Date Optic Nerve Topography-Professional Optic Nerve Topography-Professional Optic Nerve Topography Oct- Optic Nerve Topography Jul- Office/outpatient Visit, Est Corneal Pachymetry Visual Field Examination-Professional Fe Visual Field Examination-Technical Nov- Office/outpatient Visit, Est Eye Exam & Treatment Visual Functional Status Assessed BF Plastic Sphcyl [place] To +/-4d .12-2d Vision Svcs Frames Purchases Frames Deluxe Tint Photochromatic, Plastic Refraction Post-op Follow-up Visit Advance Directives Directive Yes / No Effective Date File Name No Information Encounters Encounter Description Practice Location Reason(s) For Visit Diagnoses Date Provider Providers Copied on Encounter [facility], [address], [place], [place], [id number], [place] tel:[phone] [facility] No Information 0 Anthony Kahn. [address] , [address], [place], [address], [place]. tel:[phone] Referring Provider: [facility] [address], [place], [address]. tel:[phone] [facility], [address] [place] [address] [address], [place], [place], [id number], [place] tel:[phone] [facility] No Information 2-201 0 Anthony Kahn. [facility] [address], [place], [address], [place]. tel:[phone] Referring Provider: Femi King, [facility] [address], [place], [place], [facility]. tel:[phone] Office/outpat ient Visit, [facility], [address] [place] [address] [address], [place], [place], [id number], [place] tel:[phone] [facility] [place] No Information 201 0 Anthony Kahn. [address] [place] [address] [address], [place], [address], [place]. tel:[phone] Referring Provider: Femi King, [address] [place], [place] [address], [place], [facility]. tel:[phone] [facility], [address] [place] [address] [address], [place], [place], [id number], [place] tel:[phone] [facility] [place] No Information 201 0 Anthony Kahn. [address] [place], [place] [address], [address], [place], [address], [place]. tel:[phone] Referring Provider: [facility] [address], [place], [facility]. tel:[phone] [facility], [address] [place] [address] [address], [place], [place], [address], [place] tel:[phone] [facility] No Information 3-201 0 Anthony Kahn. [address] [place] [address] , [address], [place], [address], [place]. tel:[phone] Referring Provider: Femi King, [address] [place], [place] [address]ate [place] [address], [place], [address]. tel:[phone] Office/outpat ient Visit, [facility], [id number] [place] [address] [address], [place], [place], [id number], [place] tel:[phone] SEC [facility] No Information 8201 0 Anthony Kahn. [address] [place] [address] , [address], [place], [address], [place]. tel:[phone] [facility], [address] [place] [address] [address], [place], [place], [address], [place] tel:[phone] SEC [facility] No Information 200 7 Hunter OD Mateus. [address] [place] [address] , [address], [place], [address], [place]. tel:[phone] [facility], [address] [place] [address] [address], [place], [place], [address], [place] tel:[phone] SEC [facility] No Information 7 [employer] . [address] [facility], [address], [place], [place], [id number], [place]. tel:[phone] Referring Provider: Mateus Hunter OD Fernando, [address] [place] [address] [address], [place], [address]. tel:[phone] sulting Provider: Darian Hall, [address] [place], [place] [address]ate [place], [place], [address]. tel:[phone] [facility], [address], [place], [place], [address], [place] tel:[phone] [facility] No Information 200 6 Hunter OD Mateus. [address] [place] [address] [address] , [address], [place], [address], [place]. tel:[phone] Family History Family Member Type Diagnosis Age At Onset No Information Payers Payer name Insurance type Covered constitution party ID Authoriza tion(s) [place] [id number] Social History Type Description Quantity Date Captured Comments Sex Female Smoking Status No Information Chief Complaint And Reason For Visit No Information Reason For Referral Reason For Referral No Information History Of Present Illness Encounter Date Complaint History Of Prese nt Illness No Information Functional Status Date Functional Assessmen t No Information Instructions Date Instruction Additional Infor mation No Information Assessments Type Assessment Date No Information Patient Care Teams Name Effective Dates (start - stop) Status Members No Information
--- OUTSIDE RECORDS SUMMARY | 2025-04-16 11:43 | XMS_ITS | Referral Summary ---
Author Organization [facility] [address] Address [address] [place] [address] Care Team Providers Care Burrito Maker Name Role Phone Jeramy Orourke MD Unavailable [phone] Jefferson Kong NP Primary Care Provider [phone] Encounters Date Type Department Care Team Description 01/30/2025 8:30 AM CDT Ancillary Procedure [facility] Medical Group Cardiology [address] [place] [address] [place] [id number] Paroxysmal A-fib (HCC) [I48.0] (Primary Dx); Cardiac pacemaker in situ; Bradycardia; SSS (sick sinus syndrome) (HCC) 01/28/2025 11:23 AM CDT - 01/28/2025 4:14 PM CDT Emergency [facility] Emergency Department [address] [place] [id number] Alejandra Rodriguez MD PhD Mateus Lebron MD Syncope, unspecified syncope type (Primary Dx); Bradycardia Discharge Disposition: Discharge to home or self care from Last 3 Months Allergies No known active allergies Medications aspirin [...] 24 hr tabletIndications :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, unspecified vessel [...] (02/03/2021): Added automatically from request for surgery [id number] CAD (coronary artery disease) 02/03/2021 Overview (02/03/2021): Added automatically from request for surgery [id number] Paroxysmal atrial fibrillation 10/16/2019 Coronary artery disease invo lving chilkoot coronary artery of chilkoot heart without angina pectoris 02/17/2018 Orthostatic hypotension 02/17/2018 History of coronary artery stent placement 02/17 Bradycardia Essential hypertension Anemia, mild Resolved Problems Problem Noted Date Diagnosed Date Resolved Date Chronic anticoagulation 10/16/201910/18 Social History Tobacco Use Types Packs/Day Years [...] on file Legal Sex 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 Gender Identity Not on file Sexual Orientation Not on file Last Filed Vital Signs Vital Sign Reading [...] 01/28/2025 11:49 AM CDT Plan of Treatment Not on file Medical Devices Implanted Type Area Jet Wiper Device Identifier Shelf Expiration Date Model / Serial / Lot [employer] 127381 Solia S 53cm Steroid Elute Bipolar Active Fixation Endocardial - [id number] - [id number] Implanted:Qty: 1 on 02/04/2021 by Harrison Carrero MD at [facility] N/A: Heart [employer] 11/17/2022 [id number] / [id number] / Description:Right Ventricle Lead [employer] 112705 Solia S 45cm Bipolar Active Fixation Lead Pacing Steroid Eluting - [id number] - [id number] Implanted:Qty: 1 on 02/04/2021 by Harrison Carrero MD at [facility] N/A: Heart [employer] 12/15/2022 [id number] / [id number] / Description:Atrial Lead [employer] [id number] Edora Promri 78e75u0.5mm Dual Chamber Rate Adaptive Unipolar Bipolar - [id number] - [id number] Implanted:Qty: 1 on 02/04/2021 by Harrison Carrero MD at [facility] Left: Chest [employer] 05/17/2022 [id number] / [id number] / Procedures Procedure Name Priority Date/Time Associated [...] lead measurements noted. Presenting rhythm: -VS. Ap-58%, WIND TURBINE DESIGN ENGINEER-0%. No Atrial high rate episodes noted. 1 Ventricular high rate episode noted on 11/26/2024, iegm NSVT 21 beat duration @ 185 bpm. See device check attachment. Medications; Coreg, Imdur, Lipitor, ASA. See scanned report. Office pacemaker f/u 06/06/2025. Bi[employer]ronik remote f/u du in 6 months. Yumiko Roche, ELPIDIO Jeramy Orourke MD CV CARDIAC SERVICES PROC EDURES Final Result * (ABNORMAL) Urinalysis reflex to microscopic and culture Urine, clean voided (01/28/2025 1:24 PM CDT) Color, ur Straw Yellow Clarity, ur Cloudy(A) Clear [facility] Specific gravity, ur 1.009 1.003 - 1.030 [facility] pH, urine 7.5 [facility] Comment: Interpretive Data U rine pH is affected by diet, medications, systemic acid-base disturbances, and renal tubular function. pH may affect urinary stone formation. For example, urine pH below 6.0 may help reduce the tendency for calcium phosphate stones and pH greater than 6.0 may reduce the tendency for uric acid stone formation. Source: [facility] Current Interpretive Data was last revised on 2017 Protein, ur ql Trace Negative [facility] Glucose, ur ql Negative Negative [facility] Ketones, ur Negative Negative [facility] Bilirubin, ur Negative Negative [facility] Blood, ur Negative Negative [facility] Urobilinogen, ur <2.0 <2.0 mg/dL [facility] Nitrite, ur Negative Negative [facility] Leukocyte esterase, ur Negative Negative [facility] UA reflex comment Reflex conditions for microscopic UA and culture not met. [facility] Urine, clean voided 01/28/2025 1:24 PM CDT 01/28/2025 1:30 PM CDT Hoa Vizcaino MD LAB MICROBIOLOGY - GENE RAL ORDERABLES Final Result [facility] Department [place] [address] * Troponin I high-sensitivity 2-hour (01/28/2025 1:18 PM CDT) Trop I hs 5 <=17 ng/L Comment: Interpretive Data For further hscTnI resources including the diagnostic algorithm and an aid in interpretation, copy and paste this link: https://bjhlab.testcatalog.org/show/hsTrop-[email or web address] Current Interpretive Data last revised 2020. Trop I hs delta 0 ng/L [facility] Trop I hs interp Insignificant [facility] Blood 01/28/2025 1:18 PM CDT 01/28/2025 1:40 PM CDT Hoa Vizcaino MD LAB BLOOD ORDERABLES Fi nal Result [facility] Department [place] [address] * POCT glucose (01/28/2025 12:36 PM CDT) Glucose, POC 103 70 - 199 mg/dL Blood 01/28/2025 12:3 6 PM CDT 01/28/2025 12:36 PM CDT us Alejandra Rodriguez MD PhD LAB POCT ORDERABLES - D EVICE Final Result Performing Organization Address City/[facility]/[place] Co de Phone Number [facility] [place] [address] * ECG 12-LEAD (01/28/2025 12:26 PM CDT) Narrative [facility] - 01/28/2025 12:26 PM CDT Alejandra Rodriguez [...] the ED Alejandra Rodriguez MD PhD 01/28/25 [id number] us Hoa Vizcaino MD ECG ORDERABLES Final [...] it. Electronically signed by: Atif Hernández M.D. us Hoa Vizcaino MD IMG XR PROCEDURES Final Result * Troponin I high-sensitivity series (baseline, 2hr, 4hr, 6hr) (01/28/2025 11:43 AM CDT) Trop I hs 5 <=17 ng/L Comment: Interpretive Data For further hscTnI resources including the diagnostic algorithm and an aid in interpretation, copy and paste this link: https://bjhlab.testcatalog.org/show/hsTrop-1 Current Interpretive Data last revised 2020. Blood 01/28/2025 11:4 3 AM CDT 01/28/2025 12:06 PM CDT Hoa Vizcaino MD LAB BLOOD ORDERABLES Fi nal Result [facility] Department [place] [address] * eGFR (01/28/2025 11:43 AM CDT) eGFR 84 >=60 mL/min/1. 73 m2 Comment: [...] MD LAB BLOOD ORDERABLES Fi nal Result [facility] Department [place] [address] * (ABNORMAL) Differential, auto (01/28/2025 11:43 AM CDT) Neutrophil abs 5.80 1.50 - 6.50 K/cumm Imm gran abs 0.05 0.00 - 0.10 K/cumm [facility] Lymphocyte abs 2.33 0.80 - 3.30 K/cumm [facility] Monocyte abs 0.89(H) 0.20 - 0.80 K/cumm [facility] Eosinophil abs 0.33 0.00 - 0.50 K/cumm [facility] Basophil abs 0.04 0.00 - 0.10 K/cumm [facility] Neutrophil pct 61.5 % [facility] Comment: Interpretive Data Percent cell count reference ranges are not reported, since discordance with absolute values may lead to misinterpretation of CBC data. Current Interpretive Data was last revised on 2018. Imm gran pct 0.5 % [facility] Comment: Interpretive Data Percent cell count reference ranges are not reported, since discordance with absolute values may lead to misinterpretation of CBC data. Current Interpretive Data was last revised on 2018. Lymphocyte pct 24.7 % [facility] Comment: Interpretive Data Percent cell count reference ranges are not reported, since discordance with absolute values may lead to misinterpretation of CBC data. Current Interpretive Data was last revised on 2018. Monocyte pct 9.4 % [facility] Comment: Interpretive Data Percent cell count reference ranges are not reported, since discordance with absolute values may lead to misinterpretation of CBC data. Current Interpretive Data was last revised on 2018. Eosinophil pct 3.5 % [facility] Comment: Interpretive Data Percent cell count reference ranges are not reported, since discordance with absolute values may lead to misinterpretation of CBC data. Current Interpretive Data was last revised on 2018. Basophil pct 0.4 % [facility] Comment: Interpretive Data Percent cell count reference ranges are not reported, since discordance with absolute values may lead to misinterpretation of CBC data. Current Interpretive Data was last revised on 2018. Blood 01/28/2025 11:4 3 AM CDT 01/28/2025 12:06 PM CDT Hoa Vizcaino MD LAB BLOOD ORDERABLES Fi nal Result [facility] Department [place] [address] * (ABNORMAL) Pro B-type natriuretic peptide (01/28/2025 [...] ORDERABLES Fi nal Result Performing Organization Address City/[facility]/ZIP Co de Phone Number [facility] Department [place] [address] * Thyroid Function Dalton (01/28/2025 11:43 AM CDT) [facility] TSH 1.21 0.30 - 4.20 mcIUnit/mL Blood 01/28/2025 11:4 3 AM CDT 01/28/2025 12:06 PM CDT Hoa Vizcaino MD LAB BLOOD ORDERABLES Fi nal Result Performing Organization Address City/[facility]/[place] Co de Phone Number [facility] [place] [address] * Respiratory pathogen panel Nasopharyngeal (01/28/2025 11:43 AM CDT) [facility] Influenza A RNA Not Detected Not Detected Influenza B RNA Not Detected Not Detected [facility] RSV RNA Not Detected Not Detected [facility] COVID-19 RNA Not Detected Not Detected [facility] Coronavirus 229E RNA Not Detected Not Detected [facility] Coronavirus HKU1 RNA Not Detected Not Detected [facility] Coronavirus NL63 RNA Not Detected Not Detected [facility] Coronavirus OC43 RNA Not Detected Not Detected [facility] Adenovirus DNA Not Detected Not Detected [facility] Metapneumovirus RNA Not Detected Not Detected [facility] Rhinovirus/Enterov irus RNA Not Detected Not Detected [facility] Parainfluenza 1 RNA Not Detected Not Detected [facility] Parainfluenza 2 RNA Not Detected Not Detected [facility] Parainfluenza 3 RNA Not Detected Not Detected [facility] Parainfluenza 4 RNA Not Detected Not Detected [facility] B. pertussis DNA Not Detected Not Detected [facility] B. parapertussis DNA Not Detected Not Detected [facility] C. pneumoniae DNA Not Detected Not Detected [facility] M. pneumoniae DNA Not Detected Not Detected [facility] Nasopharyngeal 01/28/2025 11 :43 AM CDT 01/28/2025 11:58 AM CDT Narrative [facility] - 01/28/2025 12:51 PM CDT Is the Patient experiencing symptoms consistent with COVID?->Yes Surveillance testing for transplant patient?->No Interpretive Data The Kite FilmArray Respiratory Panel (RP2.1) assay is a [...] assay has FDA clearance for testing of MACHINE GUN MECHANIC swabs. The performance of additional specimen types has been assessed by the performing laboratory. The performance characteristics of this assay have been determined by [facility] Molecular Infectious Disease Laboratory. Current interpretive data was last revised on 22. Hoa Vizcaino MD LAB MICROBIOLOGY - GENE RAL ORDERABLES Final Result [facility] Department [place] [address] * (ABNORMAL) CBC with auto differential (01/28/2025 11:43 AM CDT) WBC 9.44 3.80 - 9.90 K/cumm Hgb 11.2(L) 11.9 - 15.5 g/dL [facility] Hct 34.4(L) 35.6 - 45.5 % [facility] Plt 260 150 - 400 K/cumm [facility] MPV 9.7 9.1 - 12.3 fL [facility] RBC 3.75(L) 3.90 - 5.20 M/cumm [facility] MCV 91.7 81.3 - 96.4 fL [facility] MCH 29.9 27.1 - 33.3 pg [facility] MCHC 32.6 32.3 - 35.7 g/dL [facility] RDW CV 13.9 11.1 - 14.9 % [facility] RDW SD 47.1 35.7 - 48.1 fL [facility] NRBC abs 0.00 0.00 - 0.01 K/cumm [facility] Blood 01/28/2025 11:4 3 AM CDT 01/28/2025 12:06 PM CDT Hoa Vizcaino MD LAB BLOOD ORDERABLES Fi nal Result Performing Organization Address City/[facility]/ZIP Co de Phone Number [facility] [place] [address] * Phosphorus (01/28/2025 11:43 AM CDT) [facility] Phosphorus, pl 3.0 2.3 - 4.5 mg/dL Blood 01/28/2025 11:4 3 AM CDT 01/28/2025 12:06 PM CDT Hoa Vizcaino MD LAB BLOOD ORDERABLES Fi nal Result Performing Organization Address [facility]/[place] Co de Phone Number [facility] [place] [address] * Magnesium (01/28/2025 11:43 AM CDT) [facility] Magnesium 2.0 1.4 - 2.5 mg/dL Blood 01/28/2025 11:4 3 AM CDT 01/28/2025 12:06 PM CDT Hoa Vizcaino MD LAB BLOOD ORDERABLES Fi nal Result Performing Organization Address [facility]/[place] Co de Phone Number [facility] [place] [address] * (ABNORMAL) Comprehensive metabolic panel (01/28/2025 11:43 AM CDT) [facility] Sodium 143 135 - 145 mmol/L Potassium, pl 3.9 3.3 - 4.9 mmol/L [facility] Chloride 107 97 - 110 mmol/L [facility] CO2 27 22 - 32 mmol/L [facility] Anion gap 9 2 - 15 mmol/L [facility] BUN 12 6 - 25 mg/dL [facility] Creatinine 0.69 0.60 - 1.10 mg/dL [facility] Glucose 94 70 - 199 mg/dL [facility] Comment: Interpretive Data Fasting glucose >/= 126 [...] 2022. Calcium 8.7 8.5 - 10.3 mg/dL [facility] Bilirubin, total 0.3 0.1 - 1.2 mg/dL [facility] Protein, pl 6.4(L) 6.5 - 8.5 g/dL [facility] Albumin 3.5 3.5 - 5.0 g/dL [facility] Alk phos 93 40 - 130 Units/L [facility] ALT 12 7 - 45 Units/L [facility] AST 17 10 - 45 Units/L [facility] Blood 01/28/2025 11:4 3 AM CDT 01/28/2025 12:06 PM CDT Hoa Vizcaino MD LAB BLOOD ORDERABLES nal Result Performing Organization Address City/State/[place] Co de Phone Number [facility] [place] [address] from Last 3 Months Insurance MEDICARE [facility] MEDICARE [facility] MEDICARE [facility] MEDICARE [facility] Advance Directives For more information, please contact: [phone] * Full Code (Latest Code Status on File) Date Activated Date Inactivated Comments 02/01/2021 4:19 PM 02/05/2021 10:16 PM Care Teams Burrito Maker Relationship Specialty Start Date End Date Jefferson Kong NP [address] [facility] [address] [place] [address] PCP - General Nurse Practitioner 01/11/25 Jeramy Orourke MD [address] [place] [address] Consulting Physician Cardiology 02/05/21
--- OUTSIDE RECORDS SUMMARY | 2025-04-16 11:43 | XMS_ITS | Clinical Summary ---
Author Organization [facility] Address [address], [address] [address] Phone Care Team Providers Care Welding Process Specialist Name Role Phone Caden Mills Primary Care Provider [phone] Allergies No known active allergies Medications polyethylene glycol (MIRALAX) Powder Use entire 255g bottle with 64oz of clear liquid as directed for colonoscopy prep. 255 g 0 6 Active LISINOPRIL PO Take by mouth. A ctive CLOPIDOGREL BISULFATE PO Take by mouth. Ac tive ASPIRIN PO Take by mouth. Acti ve Multiple Vitamins-Minera ls (MULTIVITAMIN PO) Take by mouth. Activ e Calcium Acetate, Phos Binder, (CALCIUM ACETATE PO) Take by mouth. Act khushi Family History Medical History Relation Name Comments Congestive Heart Failure Mother Breast Cancer Other Aunt Diabetes Sister Ovarian Cancer Sister Relation Name Status Comments Mother Other Sister Social History Tobacco Use Types Packs/Day Years Used Date Smoking Tobacco: Former Cigarettes 0.5 8 1 954 - 1962 Smokeless Tobacco: Never Alcohol Use Standard Drinks/Week Comments No 0 (1 standard drink = 0.6 oz pur e alcohol) Comments Unknown Sex and Gender Information Value Date Recorded Sex Assigned at Not on file Legal Sex Female 11:39 PM CDT Gender Identity Not on file Sexual Orientation Not on file Plan of Treatment Health Maintenance Due Date Last Done Comments DEXA Bone Density 1935 Hepatitis C Virus (HCV) Screening 1935 TdaP Immunization 1935 Pneumococcal Immunization (5 0+ years) (1 of 1 - PCV) 1987 Zoster Immunization (1 of 2) 1987 Respiratory Syncytial Virus (RSV) Immunization (Adult) (1 - 1-dose 75+ series) 2012 Influenza Immunization (#1) 2024 SARS-COV-2 Immunization (1 - 2023-25 season) 2024 Hepatitis B Immunization Aged Out No longer eligible based on patient's age to complete this topic Meningococcal Immunization (ACWY) Aged Out No longer eligible based on patient's age to complete this topic Rotavirus Immunization Aged Out No lo nger eligible based on patient's age to complete this topic Insurance MEDICARE [facility] Care Teams Welding Process Specialist Relationship Specialty Start Date End Date Caden Mills DO [address] [place] [address] PCP - General Internal Medicine 09/25/16
[2025-04-16 12:07] LABS: Alanine Aminotransferase 13 U/L (6-35); Albumin Level 3.9 g/dL (3.5-5.1); Alkaline Phosphatase 51 U/L (38-126); Anion Gap 6 mmol/L (4-12); Aspartate Amino Transferase 27 U/L (14-36); Bilirubin,Total 0.4 mg/dL (0.2-1.3); Blood Urea Nitrogen 14 mg/dL (7-17); Calcium 9.4 mg/dL (8.4-10.2); Carbon Dioxide 27 mmol/L (22-30); Chloride 107 mmol/L (98-107); Cholesterol 176 mg/dL (0-200); Estimated Glomerular Filt Rate > 60; Glucose 96 mg/dL (65-110); HDL Direct 54 mg/dL; Potassium 4.1 mmol/L (3.4-5.0); Sodium 140 mmol/L (137-145); Total Protein 6.9 g/dL (6.3-8.2); Triglycerides 104 mg/dL (<150)
[2025-04-16 12:18] LABS: LDL Cholesterol Direct 79 mg/dL
== END 2025-04-16 11:11 | disposition home or self-care (01) ==
PROVIDERS: PCP Nurse Practitioner; Visit Provider Nurse Practitioner
DX: E78.5 Hyperlipidemia, unspecified (principal); Z79.899 Other long term (current) drug therapy
CPT/HCPCS: 36415; 80053; 80061; 84443

== ENCOUNTER 2025-09-04 12:58 | Outpatient (CLI) | payer MEDICARE, SELFPAY ==
[2025-09-04 14:24] LABS: Hematocrit 39.5 % (37.0-47.0); Hemoglobin 12.8 g/dL (12.0-15.0); Mean Corpuscular HGB Conc 32.4 g/dl (32-36); Mean Corpuscular Hemoglobin 30.4 pg (26-34); Mean Corpuscular Volume 93.8 fl (80-100); Platelet Count Result 316 k/mm3 (150-375); Red Blood Count 4.21 M/mm3 (4.2-5.4); White Blood Count 11.8 K/mm3 (4.5-10.0)
[2025-09-04 14:51] LABS: Alanine Aminotransferase 17 U/L (6-35); Albumin Level 4.1 g/dL (3.5-5.1); Alkaline Phosphatase 78 U/L (38-126); Anion Gap 7 mmol/L (4-12); Aspartate Amino Transferase 25 U/L (14-36); Bilirubin,Total 0.5 mg/dL (0.2-1.3); Blood Urea Nitrogen 13 mg/dL (7-17); Calcium 10.0 mg/dL (8.4-10.2); Carbon Dioxide 26 mmol/L (22-30); Chloride 103 mmol/L (98-107); Cholesterol 195 mg/dL (0-200); Estimated Glomerular Filt Rate > 60; Glucose 100 mg/dL (65-110); HDL Direct 58 mg/dL; Potassium 4.3 mmol/L (3.4-5.0); Sodium 136 mmol/L (137-145); Total Protein 7.3 g/dL (6.3-8.2); Triglycerides 113 mg/dL (<150)
== END 2025-09-04 12:59 | disposition home or self-care (01) ==
PROVIDERS: PCP Nurse Practitioner; Visit Provider Nurse Practitioner
DX: E78.5 Hyperlipidemia, unspecified (principal); R53.83 Other fatigue
CPT/HCPCS: 36415; 80053; 80061; 85027